=== PATIENT | female | born 1950 | race Caucasian/White ===

== ENCOUNTER 2018-07-04 13:20 | Emergency (ER) | payer BC, OTHER ==
[~2018-07-04] VITALS: Ht 167.6 cm; Wt 63.5 kg
[2018-07-04] MEDS ORDERED: WELLBUTRIN XL300 MG PO (13:33)
[2018-07-04] MEDS ORDERED: LISINOPRIL-HCT1 EACH PO (13:34)
[2018-07-04] MEDS ORDERED: ATORVASTATIN CA40 MG PO (13:34)
[2018-07-04] MEDS ORDERED: VALACYCLOVIR500 MG PO (13:35)
[2018-07-04] MEDS ORDERED: B12INJ PO (13:36)
[2018-07-04] MEDS ORDERED: ASPIRIN325 PO (13:37)
[2018-07-04] MEDS ORDERED: VITAMIN D2000 UNIT PO (13:37)
[2018-07-04 13:52] LABS: ABSOLUTE NEUTROPHILS 9.3 thou/uL (1.4-8.2); BASOPHILS 0.2 % (0.0-2.0); HEMATOCRIT 42.8 % (37.0-47.0); HEMOGLOBIN 14.9 gm/dL (12.0-15.0); LYMPHOCYTES 14.9 % (24.0-44.0); MCH 34.8 pg (26.0-34.0); MCHC 34.7 g/dL (28.0-37.0); MCV 100.2 fL (80.0-100.0); MONOCYTES 5.1 % (1.0-8.0); PLATELET COUNT 286 thou/uL (150-400); POLYS 78.8 % (36.0-66.0); RBC 4.27 mil/uL (4.20-5.00); WBC 11.8 thou/uL (4.0-11.0)
[2018-07-04 13:56] LABS: CALCIUM 9.6 mg/dL (8.5-10.1); CREATININE 0.9 mg/dL (0.6-1.0); POTASSIUM 3.8 mmol/L (3.5-5.1)
[2018-07-04 14:01] LABS: ALBUMIN 3.6 g/dL (3.4-5.0); TOTAL BILIRUBIN 0.6 mg/dL (<0.1-1.0); TOTAL PROTEIN 6.9 g/dL (6.4-8.2)
[2018-07-04 14:06] LABS: PROTIME 10.2 Seconds (9.3-11.4)
[2018-07-04] MEDS ORDERED: NORFLEX100 MG PO (15:43)
[2018-07-04] MEDS ORDERED: NORCO 5-325 TA1 EACH PO (15:43)
[2018-07-04] MEDS ORDERED: VOLTAREN GEL 1100 G2 TOP (15:43)
[2018-07-04 16:29] VITALS: BP 117/64
== END 2018-07-04 16:31 | disposition home or self-care (01) ==
LOC: ER 13:20
PROVIDERS: Physician Assistant
DX: S39.012A Strain of muscle, fascia and tendon of lower back, initial encounter (principal); S70.02XA Contusion of left hip, initial encounter; W19.XXXA Unspecified fall, initial encounter; Y93.89 Activity, other specified; Y92.89 Other specified places as the place of occurrence of the external cause; Y99.8 Other external cause status; Z90.710 Acquired absence of both cervix and uterus; Z87.01 Personal history of pneumonia (recurrent); Z87.19 Personal history of other diseases of the digestive system

== ENCOUNTER 2019-02-03 16:27 | Emergency (ER) | payer BC, OTHER ==
[~2019-02-03] VITALS: Ht 167.6 cm; Wt 61.2 kg
[~2019-02-03 16:27] MED LIST: ASPIRIN325 PO; ATORVASTATIN CA40 MG PO; B12INJ PO; LISINOPRIL-HCT1 EACH PO; NORCO 5-325 TA1 EACH PO; NORFLEX100 MG PO; VALACYCLOVIR500 MG PO; VITAMIN D2000 UNIT PO; VOLTAREN GEL 1100 G2 TOP; WELLBUTRIN XL300 MG PO
[2019-02-03 16:28] VITALS: BP 135/76
[2019-02-03] MEDS ORDERED: ULTRAM 50MG TAB50 MG PO (17:49)
[2019-02-03] MEDS ORDERED: NORCO 5-325 TA1 EACH PO (18:21)
== END 2019-02-03 18:40 | disposition home or self-care (01) ==
LOC: ER 16:27
DX: S01.111A Laceration without foreign body of right eyelid and periocular area, initial encounter (principal); M54.9 Dorsalgia, unspecified; Z90.710 Acquired absence of both cervix and uterus; W18.2XXA Fall in (into) shower or empty bathtub, initial encounter; Y92.002 Bathroom of unspecified non-institutional (private) residence as the place of occurrence of the external cause; Y93.89 Activity, other specified; Y99.8 Other external cause status

== ENCOUNTER → 2019-07-13 | Outpatient (CLI) | payer BC, OTHER ==
[~2019-07-13] MED LIST changes: +ULTRAM 50MG TAB50 MG PO
== END ==
LOC: NUC 10:24
DX: Z12.31 Encounter for screening mammogram for malignant neoplasm of breast (principal); M81.0 Age-related osteoporosis without current pathological fracture; M85.89 Other specified disorders of bone density and structure, multiple sites; Z78.0 Asymptomatic menopausal state